=== PATIENT | male | born 1950 | race Caucasian/White ===

== ENCOUNTER → 2017-09-25 | Day surgery (SDC) | payer MEDICARE, BC ==
[~2017-09-25] MED LIST: Lactated Ringers 1,000 ML IV SCH; Propofol 200 MG/20 ML SDV IV ONE
--- NOTE | 2017-09-25 13:11 | OR ---
DATE OF OPERATION: 09/25/2017 PREOPERATIVE DIAGNOSIS: 1. ABDOMINAL BLOATING. 2. DIARRHEA. 3. GASTROESOPHAGEAL REFLUX DISEASE. POSTOPERATIVE DIAGNOSIS: 1. ABDOMINAL BLOATING. 2. DIARRHEA. 3. GASTROESOPHAGEAL REFLUX DISEASE. SURGEON: Mahendra Celaya MD PROCEDURE: 1. ESOPHAGOGASTRODUODENOSCOPY WITH BIOPSIES X4, NAMITA. 2. FULL-LENGTH COLONOSCOPY WITH POLYP REMOVAL X1 VIA FORCEPS. COMPLICATIONS: None. SPECIMEN: 1. Duodenal biopsy x1. 2. Antral biopsy x2. 3. EG junction biopsy x1. 4. NAMITA. 5. Sessile polyp, ascending colon. FINDINGS: 1. Full-length EGD. 2. Antral gastritis, chronic in appearance without ulceration or erosion. 3. Hiatal hernia with spontaneous GERD. Mild in size. 4. Minimal distal esophagitis. 5. Full-length colonoscopy. 6. Sessile polyp, ascending colon, less than a centimeter. 7. Soto diverticulosis, mild. RECOMMENDATIONS: Medical followup with Dr. Hoang. INDICATIONS: The patient is having some ongoing issues with abdominal bloating and diarrhea. He has a history of prostate CA and has had some radiation to his abdomen. Dr. Hoang sent him for upper and lower endoscopy. DESCRIPTION OF PROCEDURE: The patient was prepped and draped, placed in the left lateral decubitus position. A lubricated Olympus gastroscope was inserted over a bit and advanced to the cricopharyngeus area and intubated in the esophagus. The esophageal lining was benign in its entire course. The Z-line was sharp around 35 cm associated with the hiatal hernia and spontaneous reflux. There was a little thickening right at the EG junction. No signs of any Hendrix's changes or significant esophagitis. A biopsy of that area was taken. The scope was advanced into the stomach, through the pylorus, into the second portion of the duodenum. The duodenal bulb had some mild duodenitis present without erosion or ulceration. Biopsy was taken. The scope was brought back into the stomach and retroflexed. The upper fundus and cardia were benign other than the hernia visualized from below. Upon straightening, there were some chronic changes of antral gastritis without ulceration or erosion. Two biopsies were taken along with a NAMITA. Air was then suctioned from the stomach and the scope was removed without complication. A lubricated Olympus colonoscope was then inserted and easily advanced to the cecum. Direct visualization of the ileocecal valve and appendiceal orifice was accomplished. Bowel prep was fine. Upon withdrawal, the cecal pouch was benign. In the mid ascending colon, patient had a small flat sessile polyp removed in its entirety with three forceps biopsies. The rest of the ascending and transverse colon were benign. Throughout the entire left colon, I could find no signs of any polyps, masses, ulcerations, or bleeding sites. No vascular abnormalities or signs of colitis. The patient does have some scattered diverticula in the sigmoid area, mild in severity. Rectal vault was benign. Retroflexion showed no perianal lesions. Air was then suctioned. The scope was removed without complication. ÓSCAR/VENECIA /[id number]
== END ==
LOC: CC.SDS 08:35
PROVIDERS: ATTEND Family Medicine
DX: K29.50 Unspecified chronic gastritis without bleeding (principal); R19.7 Diarrhea, unspecified; K21.9 Gastro-esophageal reflux disease without esophagitis; D12.2 Benign neoplasm of ascending colon; K44.9 Diaphragmatic hernia without obstruction or gangrene; K20.9 Esophagitis, unspecified; K57.30 Diverticulosis of large intestine without perforation or abscess without bleeding; C61 Malignant neoplasm of prostate; Z79.899 Other long term (current) drug therapy
CPT/HCPCS: 87081; J2704; J7120

== ENCOUNTER 2018-03-10 02:42 | Emergency (ER) | payer MEDICARE, BC ==
[2018-03-10] MEDS ORDERED: Ketorolac 60 MG/2 ML SDV IM ONE (03:32)
--- NOTE | 2018-03-10 03:50 | EDM.PDOC ---
ED HPI GENERAL MEDICAL PROBLEM - General Chief Complaint: Upper Extremity Injury/Pain Stated Complaint: SORE ARM Time Seen by Provider: 03/10/18 02:45 Source of Information: Reports: Patient History Limitations: Reports: No Limitations - History of Present Illness INITIAL COMMENTS - FREE TEXT/NARRATIVE: Ye is a 67 yo male who presents to the ER tonight with complaints of left upper extremity pain. He states about 6 weeks ago [place] and had some discomfort in his left arm. He admits he did favor his left arm after the injury and it was gradually improving. He states tonight he went to lie down and wasn't able to rest on his left arm. States the pain had gotten severe tonight. Admits he is unable to lift his arm d/t the pain. Onset: Today Duration: Improving Location: Reports: Upper Extremity, Left Associated Symptoms: Reports: No Other Symptoms Left Shoulder Pain Score (Numeric/FACES): 7 - Related Data Allergies Allergy/AdvReac Type Severity Reaction Status Date / Time No Known Allergies Allergy Verified 03/10/18 03:05 Home Meds: Home Meds Cholecalciferol (Vitamin D3) [Vitamin D3] 1,000 unit PO DAILY 09/23/17 [History] Magnesium 250 mg PO DAILY 09/23/17 [History] Vitamin E 100 unit PO DAILY 09/23/17 [History] Phytonadione [Vitamin K] 100 mcg PO DAILY 09/25/17 [History] Past Medical History Cardiovascular History: Reports: None Respiratory History: Reports: None Gastrointestinal History: Reports: Chronic Constipation Genitourinary History: Reports: None Musculoskeletal History: Reports: Back Pain, Chronic Neurological History: Reports: None Oncologic (Cancer) History: Reports: Prostate - Infectious Disease History Infectious Disease History: Reports: None - Past Surgical History Male Surgical History: Reports: Prostatectomy Review of Systems - Review of Systems Review Of Systems: See Below Constitutional: Denies: Chills, Fever, Weakness Eyes: Denies: Blurred Vision, Vision Change Ears: Reports: No Symptoms Nose: Reports: No Symptoms Mouth/Throat: Reports: No Symptoms Respiratory: Reports: No Symptoms. Denies: Shortness of Breath, Wheezing, Cough Cardiovascular: Denies: Chest Pain, Irregular Heart Rate, Lightheadedness, Palpitations GI/Abdominal: Reports: Constipation (chronic on miralax). Denies: Decreased Appetite, Hematemesis Musculoskeletal: Reports: Shoulder Pain (acute left), Back Pain (states he has chronic low back pain) Skin: Reports: No Symptoms Neurological: Reports: No Symptoms. Denies: Numbness, Tingling Psychiatric: Reports: No Symptoms ED EXAM, GENERAL - Physical Exam Exam: See Below Exam Limited By: No Limitations General Appearance: Alert, Mild Distress Ears: Normal External Exam, Hearing Grossly Normal Throat/Mouth: Normal Inspection, Normal Voice, No Airway Compromise Head: Atraumatic, Normocephalic Respiratory/Chest: No Respiratory Distress, Lungs Clear, No Accessory Muscle Use Cardiovascular: Regular Rate, Rhythm, No Murmur Extremities: Arm Pain, Limited Range of Motion Neurological: Alert, Oriented, No Motor/Sensory Deficits Psychiatric: Normal Affect, Normal Mood Skin Exam: Jaundice Course - Vital Signs Last Recorded V/S: Last Vital Signs Temp 97.7 F 03/10/18 03:11 Pulse 73 03/10/18 03:11 Resp 18 03/10/18 03:11 BP 121/79 03/10/18 03:11 Pulse Ox 97 03/10/18 03:11 - Orders/Labs/Meds Orders: Active Orders 24 hr Category Date Time Status Shoulder Comp Lt [CR] Stat Exams 03/10/18 02:49 Taken Meds: Medications Discontinued Medications Generic Name Dose Route Start Last Admin Trade Name Juan PRN Reason Stop Dose Admin Ketorolac Tromethamine 60 mg 03/10/18 03:32 03/10/18 03:37 Toradol IM 03/10/18 03:33 60 mg ONETIME ONE Administration - Re-Assessments/Exams Free Text/Narrative Re-Assessment/Exam: 03/10/18 03:58 Reviewed images of left shoulder and question whether there is rotator cuff involvement. I am concerned of blastic changes to the left humerus. I discussed concerning findings with Ye, which he did admit he had prostate cancer in 2013 with mets to the spine. He underwent chemo and radiation at that time and it doesn't sound as if it has been followed since. He states he was never told to follow up again. I did review CT report of the abdomen/pelvis from this spring and it did show stable mets to the spine. Departure - Departure Time of Disposition: 04:02 Disposition: Home, Self-Care 01 Clinical Impression: Shoulder pain, left - Discharge Information Instructions: Shoulder Pain, [id number] Forms: ED Department Discharge Additional Instructions: 1) [place] 5/325 - 1 tablet every 6 hours as needed for pain 2) Recheck in clinic tomorrow, will call in the morning with appointment time 3) We will get laboratory work at clinic appointment 4) Call nurses station if any questions or concerns [phone] or may call my clinic at [phone] 5) If any worsening of symptoms or concerns before appointment, return to ER - Problem List & Annotations (1) Left shoulder pain SNOMED Code(s): 75132541, 42170990 Code(s): M25.512 - PAIN IN LEFT SHOULDER Status: Acute Qualifiers: Chronicity: acute Qualified Code(s): M25.512 - Pain in left shoulder - Problem List Review Problem List Initiated/Reviewed/Updated: Yes - My Orders Last 24 Hours: My Active Orders 03/10/18 02:49 Shoulder Comp Lt [CR] Stat - Assessment/Plan Last 24 Hours: My Active Orders 03/10/18 02:49 Shoulder Comp Lt [CR] Stat Plan: Again I am worried of mets to the left humerus. After reviewing Ye's clinic chart we have no records of prior oncological care and treatment. Patient was given 60mg of Toradol IM tonight. I am going to have Ye follow up in clinic tomorrow with his primary provider. He had seen Afshan Villela in clinic before but doesn't sound as if he has really established care. He admits he hasn't had very much luck with doctor's. I do feel he needs further workup done and discussed this with him into detail. We will discharge him home tonight with recheck in clinic tomorrow afternoon. Patient was in agreement.
[2018-03-10] MEDS ORDERED: Take Home: Acetaminophen/HYDROcodone 325-5 MG, 2 Tab Pack PO ONE (04:10)
== END 2018-03-10 04:20 | disposition home or self-care (01) ==
LOC: CC.ED 02:42
DX: M25.512 Pain in left shoulder (principal); C61 Malignant neoplasm of prostate
CPT/HCPCS: 36415; 73030; 80053; 83615; 84153; 85025; 85651; 96372; 99283; J1885